=== PATIENT | female | born 1950 | race Caucasian/White ===

== ENCOUNTER 2019-08-19 12:45 | Emergency (ER) | payer MEDICARE, OTHER ==
[~2019-08-19] VITALS: Ht 154.9 cm; Wt 78.8 kg
[~2019-08-19 12:45] MED LIST: AMLO-147 PO; ASPI-817 PO; BENA40TA56 PO; CARV3.1260 PO; CIPR500T4 PO; CLON-379 PO; LEVO50TA7 PO; MECL-77 PO; METF100010 PO; SERT25TA83 PO
[2019-08-19 13:04] VITALS: Ht 154.9 cm; Wt 78.8 kg
[2019-08-19 18:37] VITALS: RESP 16
[2019-08-19 18:52] VITALS: BP 115/61; PULSE 67
== END 2019-08-19 19:05 | disposition home or self-care (01) ==
LOC: E/R 12:45
DX: R42 Dizziness and giddiness (principal); R07.89 Other chest pain; I10 Essential (primary) hypertension; Z79.82 Long term (current) use of aspirin
CPT/HCPCS: 36415; 71045; 80048; 84484; 85025; 93005